=== PATIENT | male | born 1995 | race Caucasian/White ===

== ENCOUNTER 2024-10-04 06:53 | Emergency (ER) | payer OTHER, SELFPAY ==
[2024-10-04] VITALS (7 sets, daily range): BP systolic 98–117; BP diastolic 59–73; PULSE 77–92; BMI 17.8
--- NOTE | 2024-10-04 07:16 | ED.GENMED ---
History of Present Illness
General
Chief Complaint: Fainting/Passed Out
Source: patient
Exam Limitations: none
Time Seen by Provider: 10/04/24 07:01
History of Present Illness
History of Present Illness:
49-year-old male with remote history of epilepsy not currently on any medications presents complaining of a passing out episode. He sat up fairly quickly in bed. He took a puff of his vape and then started to feel lightheaded and passed out. Fell
off the bed hitting his head on the nightstand. His significant other woke up when she heard him hit his head. He was then awake and responsive but pale and diaphoretic. He currently feels just fatigue but denies headache neck pain chest pain or
shortness of breath. No recent fever or illness. No other complaints at this time
Past History
Past History
ED Past Medical History: None
ED Past Surgical History: None
Social History
Tobacco: Non-smoker
Alcohol: Occasional
Personal: Single
Living: with roommate
Employment: Employed
Phy Exam
Physical Exam
Physical Exam:
General: Well-appearing male no acute respiratory distress
HEENT: Normocephalic right pupil is irregular and off-center to the superior aspect of the iris. when questioning the patient and significant other, they have never noticed this before. Extraocular's are intact.
Heart: Regular rate and rhythm
Lungs: Clear no wheeze
Neurologic exam: Alert and oriented no facial asymmetry finger-nose intact conversing appropriately
Extremities: No cyanosis or edema
Course
Orders/Labs/Results
Orders:
Orders
10/04/24 07:15
Electrocardiogram (*1) Urgent
Reason for Study: Palpitations
CT Head W/o Iv Contrast Urgent
Comment:
Reason For Exam: fall, right pupil irregularity
EKG- Treatment ONCE
10/04/24 07:16
Orthostatic VS- Treatment ONCE
10/04/24 07:21
Complete Blood Count/With Diff Urgent
Comprehensive Metabolic Panel Urgent
Abnormal Lab Results
10/04/24
07:21
WBC 12.2 H 10^3/uL
(4.8-10.8)
Absolute Neuts (auto) 9.2 H 10^3/uL
(1.4-6.5)
Absolute Monos (auto) 0.7 H 10^3/uL
(0.1-0.6)
Neutrophils % 75.5 H %
(42.2-75.2)
Lymphocytes % 16.1 L %
(20.5-51.1)
Glucose 113 H mg/dl
(70-99)
10/04/24 07:21
10/04/24 07:21
Vital Signs
Initial and Last Documented VS:
Initial Vital Signs
Pulse Resp BP Pulse Ox
79 18 114/69 100
10/04/24 06:56 10/04/24 06:56 10/04/24 06:56 10/04/24 06:56
Last Documented Vital Signs
Pulse Resp BP Pulse Ox
74 16 111/67 96
10/04/24 08:30 10/04/24 08:30 10/04/24 08:00 10/04/24 08:30
MDM/Problems Addressed
Differential Diagnosis Includes:
Patient with syncopal episode today. Does not sound like seizure. Question arrhythmia versus vasovagal versus electrolyte abnormality or anemia. Given the head strike and irregularity of the full but has never been noticed before CT of the head
ordered in the setting of syncope.
EKG and labs pending. Orthostatic vital signs ordered
*Critical Care Note
Total Time (30-74mins, 75-104mins- exclusive of procedures): Not Applicable
Update Note
Update Note:
CT head negative labs reviewed without finding significantly. No arrhythmias on monitor. No further syncopal episodes. I suspect orthostasis versus vasovagal event or adverse response to his vape that he used. No indication for admission.
ED Attending Note
-
Portions of this chart may have been created with voice recognition software.� Occasional wrong word or��sound alike� substitutions may have occurred due to the inherent limitations of voice recognition software.
Discharge Plan
Departure
Patient Disposition: Home (Routine Discharge)
Date of Disposition: 10/04/24
Time of Disposition: 09:26
Patient with high blood pressure during this ER visit?: No
Discharge Problem:
Syncope
Instructions: Syncope (Fainting) (DC)
Prescriptions:
No Action
No Current Medications
0
Referrals:
Aubrey Butcher, DO [Family Provider] -
Stand Alone Forms: Return to Work
Activity Restrictions/Additional Instructions:
Stay hydrated. Return here for worsening symptoms. Follow-up with your doctor otherwise
Interventions
Interventions:
*Risk Screen - Suicide Last Done: 10/04/24 06:56
*General Assessment Last Done: 10/04/24 06:56
*Neglect/Abuse Screening Last Done: 10/04/24 06:56
ED- Neurological Assessment Last Done: 10/04/24 07:35
ED- Cardiac Assessment Last Done: 10/04/24 07:35
Discharge Date and Time
Print Language: [place]
[2024-10-04 07:59] LABS: % Basophils 0.5 % (0-2); % Eosinophils 1.7 % (0-6); % Immature Granulocytes 0.3 % (0-0.5); % Lymphocytes 16.1 % (20.5-51.1); % Monocytes 5.9 % (1.7-9.3); % Neutrophils 75.5 % (42.2-75.2); Absolute Basophils 0.1 10^3/uL (0-0.2); Absolute Eosinophils 0.2 10^3/uL (0-0.7); Absolute Monocytes 0.7 10^3/uL (0.1-0.6); Absolute Neutrophils 9.2 10^3/uL (1.4-6.5); Hematocrit 44.7 % (39.0-52.0); Hemoglobin 15.4 g/dL (13.0-18.0); Mean Corp Hgb Conc. 34.5 g/dL (33.0-37.0); Mean Corpuscular Hgb 30.2 pg (27.0-31.0); Mean Corpuscular Volume 87.6 fL (80.0-94.0); Mean Platelet Volume 9.4 fL (7.4-10.4); Nucleated Red Blood Cells % 0 % (-); Platelet Count 244 10^3/uL (130-400); Red Cell Dist. Width 11.9 % (11.5-14.5); White Blood Cell Count 12.2 10^3/uL (4.8-10.8)
[2024-10-04 08:14] LABS: ALT (SGPT) 17 U/L (0-50); AST (SGOT) 23 U/L (17-59); Albumin 4.5 g/dl (3.5-5.0); Alkaline Phosphatase 61 U/L (38-126); Blood Urea Nitrogen 18 mg/dl (9-20); Calcium 10.1 mg/dl (8.4-10.2); Carbon Dioxide 26 mmol/L (22-30); Chloride 104 mmol/L (98-107); Estimated Creatinine Clearance 103 ml/min; Glucose 113 mg/dl (70-99); Potassium 3.7 mmol/L (3.5-5.1); Sodium 142 mmol/L (135-145); Total Bilirubin 0.9 mg/dl (0.2-1.3); Total Protein 7.2 g/dl (6.3-8.2); eGFR > 60.00
== END 2024-10-04 10:08 | disposition home or self-care (01) ==
LOC: EMR 06:53
PROVIDERS: Physician Assistant; EMERGENCY PHYSICIAN Emergency Medicine; FAMILY PHYSICIAN Family Medicine
DX: R55 Syncope and collapse (principal); G40.909 Epilepsy, unspecified, not intractable, without status epilepticus
CPT/HCPCS: 99284; 70450; 80053; 85025; 93005